=== PATIENT | female | born 1980 ===

== ENCOUNTER 2017-06-14 20:08 | Observation (INO) | payer BC, MEDICAID ==
[2017-06-14 23:09] LABS: Hematocrit 27 % (35-47); Mean Corpuscular HGB Conc 30 g/dl (31-36); Mean Corpuscular Hemoglobin 19 pg (27-31); Mean Platelet Volume 8 um3 (7.4-10.4); Red Blood Count 4.19 10^6/ul (4.0-5.4); Red Cell Distribution Width 18 % (10.5-15); White Blood Count 4.9 10^3/ul (3.5-10.8)
[2017-06-14 23:10] LABS: Comments Flag Yes
[2017-06-14 23:11] LABS: Mean Corpuscular Volume 64 fL (80-97)
[2017-06-14 23:25] LABS: Albumin 3.6 g/dL (3.2-5.2); BUN/Creatinine Ratio 14.3 (8-20); Calcium 7.8 mg/dL (8.6-10.3); EGFR African American 218.3 (>60); EGFR Non-African American 169.8 (>60); Globulin 2.6 g/dL (2-4); Potassium 3.2 mmol/L (3.5-5.0); Total Bilirubin 0.4 mg/dL (0.2-1.0); Total Protein 6.2 g/dL (6.4-8.9)
[2017-06-15] MEDS ORDERED: Dextrose 50% Syringe 50 ML* 25 GM/50 ML SYRINGE IV PUSH PRN (00:44)
[2017-06-15 05:25] LABS: Hematocrit 31 % (35-47); Hemoglobin 9.6 g/dl (12.0-16.0)
[2017-06-15 05:30] LABS: Comments Flag Yes
[2017-06-15] MEDS ORDERED: Insulin LISPRO* 1 UNITS UNIT SUBCUT SCH (07:30)
[2017-06-15] MEDS ORDERED: NORGESTIMATE ETHINYL ESTRADIOL PO SCH (09:00)
[2017-06-15] MEDS ORDERED: Citalopram TAB* 20 MG PO SCH (09:00)
[2017-06-15] MEDS ORDERED: Potassium Chlor TAB* 20 MEQ TAB.ER PO ONE (10:01)
[2017-06-15 11:38] VITALS: BP 114/81
--- NOTE | 2017-06-15 16:50 | HP ---
FULLY REDICTATED CC: Dr. Jigar Hidalgo * HISTORY AND PHYSICAL: DATE OF ADMISSION: 06/14/17 CHIEF COMPLAINT: Weakness. HISTORY OF PRESENT ILLNESS: The patient is a 36-year-old woman who presented to the [facility] with chief complaint as she was drained and weak for about a week. She notes she has heavy periods, so she called her ASSISTANT THERAPY AIDE who could not get her in, so she went to [facility]. She was found to have rapid hemoglobin of 7.63. She had no chest pain, no shortness of breath, no palpitations and otherwise felt well. She did not pass out. DICTATION ENDS HERE [id number]/[facility] #: [id number] MTDD
--- NOTE | 2017-06-15 16:59 | HP ---
CC: Dr. Jigar Hidalgo * HISTORY AND PHYSICAL: DATE OF ADMISSION: 06/14/17 CHIEF COMPLAINT: Weakness. HISTORY OF PRESENT ILLNESS: The patient is a 36-year-old woman, today she was feeling very weak. Actually the weakness is going for the last week and got progressively worse. She states she notes she has heavy periods and finally called her [employer] [employer], but could not get in today. Because of this she went to the [place] [facility]. In [place], she was evaluated and found to have a hemoglobin of 7.6. [place] was unable to give her a blood transfusion and ____ ___ the doctor, head of the hospitalists, who agreed to have her transferred for further treatment and evaluation. The patient had no other symptoms. No chest pain. No shortness of breath. She did not pass out. She currently feels well. PAST MEDICAL HISTORY: Significant for diabetes mellitus, depression, anxiety. PAST SURGICAL HISTORY: Significant for . CURRENT MEDICATIONS: 1. Ergocalciferol 50,000 units weekly. 2. Farxiga 5 mg daily. 3. Lexapro 10 mg daily. 4. Metformin ER 500 mg daily. 5. Trazodone 50 mg at bedtime. 6. Sprintec 1 tablet daily. ALLERGIES: She has an allergy/adverse reaction; 1. AMOXICILLIN. 2. EXENATIDE. 3. PHENOL. 4. PREDNISONE. FAMILY HISTORY: Reviewed. Noncontributory. SOCIAL HISTORY: Quite tobacco 5 years ago, 1 pack per week before that. Social alcohol. No recreational drug use. She works at [employer] and [employer]. She is with 1 daughter of her own, 3 stepchildren. Her Jigar is her healthcare proxy. REVIEW OF SYSTEMS: A 14-point review of systems was completed with the patient. All pertinent positives and negative are in the history of present illness, otherwise it is negative. PHYSICAL EXAMINATION GENERAL: Pleasant woman lying in bed, in no acute distress. VITAL SIGNS: Temperature 98.4 degrees, heart rate 99 beats per minute, respiratory rate 18 breaths per minute, pulse oximetry 99%, blood pressure 98/ 66. HEENT: Normocephalic and atraumatic. Pupils are equal, round and reactive to light. Moist mucous membranes. NECK: Supple. No JVD, bruits, palpable thyroid or lymphadenopathy. CHEST: Clear to auscultation and percussion bilaterally. CARDIOVASCULAR: S1, S2 appreciated. Regular rate and rhythm. ABDOMEN: Positive bowel sounds in all 4 quadrants. Soft, nontender, and nondistended. EXTREMITIES: No cyanosis, clubbing, or edema. +2 pulses bilaterally. NEUROLOGIC: Alert and oriented x3. Moves all extremities. SKIN: No rashes or abnormalities. LABORATORY DATA: At [facility]; white count 4.9, hemoglobin 8.0, hematocrit 27, and platelets of 230. Sodium was 139, potassium 3.2, chloride 106, CO2 20, BUN 6, creatinine 0.42, glucose 144. INR 0.85, APTT 21.5. ASSESSMENT AND PLAN: 1. Anemia due to acute blood loss and most certainly secondary to menorrhagia. I will transfuse her 1 unit packed red blood cells. If her hemoglobin comes up accordingly and shows no active drop from bleeding, she could be discharged as early as the next day. To followup with [employer] [employer] concerning her heavy periods. 2. Diabetes mellitus. Consistent carb diet. Hold metformin and fingersticks with sliding scale insulin. 3. Depression. Continue Lexapro 10 mg daily. 4. FEN: Consistent carb diet. 5. DVT prophylaxis. None and she is young and ambulatory. 6. The patient is a full code. TIME SPENT: Over 75 minutes was spent on this H and P, more than 40 minutes of which was spent in direct [id number] contact with the patient in evaluation, physical exam, counseling, and coordination of care. [id number]/[facility] #: [id number] MTDD
[2017-06-15] MEDS ORDERED: traZODone TAB* 50 MG TAB PO SCH (21:00)
--- NOTE | 2017-06-16 08:54 | DS ---
CC: Dr. Jigar Hidalgo * DISCHARGE SUMMARY: DATE OF ADMISSION: 06/14/17 DATE OF DISCHARGE: 06/15/17 PRIMARY CARE PROVIDER: Dr. Hidalgo from [place] DISCHARGE DIAGNOSIS: Macrocytic anemia due to menorrhagia. MEDICATIONS AT DISCHARGE: Include: 1. Farxiga 5 mg daily. 2. Vitamin D3 50,000 units weekly. 3. Lexapro 10 mg daily. 4. Ferrous sulfate 325 mg twice a day. 5. Metformin ER 1000 mg daily. 6. Norgestimate, ethinyl estradiol 1 tablet daily. 7. Trazodone 50 mg at bedtime. LABORATORY DATA AT DISCHARGE: Includes hemoglobin of 9.6, hematocrit of 31. HOSPITALIZATION COURSE: Anup Wiley is a 36-year-old female with history of menorrhagia for which she was seen by her director product approximately 2 months ago and prescribed a control pill. By that, she started having profuse menstrual period couple of days prior to her admission. She presented to [facility] for evaluation and was noted to be tachycardic with hemoglobin of 7.5. She was transferred to our facility for transfusion. Here, she received 1 unit of packed red blood cells and her hemoglobin kailee from 8.0 to 9.6 at time of discharge. She is still mildly tachycardic with a heart rate of 99 to 111 at discharge. At discharge, the patient is recommended to follow up with her primary care provider in 4 to 7 days. She is recommended to follow up with her director product within the next week for further evaluation of menorrhagia. She is recommended to continue her medications as previously prescribed as well as iron supplement that was prescribed for her today. PHYSICAL EXAMINATION: At the time of discharge, blood pressure of 114/81, heart rate of 111 and regular, respiratory rate 16, O2 saturation 100% on room air, temperature 98.2. General: The patient is a very pleasant 36-year-old female who is not in acute distress. Alert, awake, and oriented x3. HEENT: Head, atraumatic, normocephalic. Eyes: Pupils are equal, reactive to light and accommodation. Oropharynx is clear. Mucosa moist. Neck: Supple. No JVD. No bruits bilaterally. Cardiovascular: Regular rate and rhythm. No murmur. Respiratory: Clear to auscultation bilaterally. Abdomen: Soft, nontender. Bowel sounds are present in all 4 quadrants. Extremities: There is no edema. Pulses are +2 bilaterally. No clubbing or cyanosis. Please note that this is a very short summary of the patient's hospitalization. Please refer to further medical records for details. [id number]/[facility] #: [id number] MTDD
== END 2017-06-15 12:45 | disposition home or self-care (01) ==
LOC: MED 21:41
PROVIDERS: ADMIT Internal Medicine; ATTEND Internal Medicine
DX: D62 Acute posthemorrhagic anemia (principal); N92.4 Excessive bleeding in the premenopausal period; R00.0 Tachycardia, unspecified; E11.9 Type 2 diabetes mellitus without complications; Z79.84 Long term (current) use of oral hypoglycemic drugs; F41.8 Other specified anxiety disorders; Z87.891 Personal history of nicotine dependence
CPT/HCPCS: 36415; 80053; 83036; 85014; 85018; 85025; 85610; 85730; 86850; 86900; 86901; 86922; 96374; A9270-GY; G0378; P9040